=== PATIENT | female | born 2000 | race African-American/Black ===

== ENCOUNTER 2019-12-21 17:38 | Emergency (ER) | payer OTHER ==
--- NOTE | 2019-12-21 17:53 | PDOC ---
Rapid Medical Evaluation Chief Complaint: Pain, Acute Time Seen by Provider: 12/21/19 17:50 Medical Evaluation: 12/21/19 17:50 19 year old female no pmhx (2 medical abortions) last one 2 weeks ago missed follow up to assess for retained products, complaining of lower abdominal pain. No nausea vomiting fever chills or vaginal bleeding Pe: Mildly ttp over suprapubic region Plan TVUS Beta CBC and T&S Pt to precede to ED for further evaluation and treatment at the discretion of the provider in the ED Discharge Disposition - Discharge Dispostion Condition at time of disposition: Stable - Referrals - Patient Instructions - Post Discharge Activity
[2019-12-21 17:58] VITALS: BMI 20.7
[2019-12-21 18:14] LABS: EOS % 0.4 % (0-4.5); HEMATOCRIT 37.2 % (32.4-45.2); HEMOGLOBIN 12.2 GM/dL (10.7-15.3); LYMPH % 21.8 % (8-40); MCH 25.5 pg (25.7-33.7); MCHC 32.8 g/dl (32.0-36.0); MEAN PLT VOLUME 9.5 fl (7.5-11.1); MONO % 8.5 % (3.8-10.2); NEUT % 68.3 % (42.8-82.8); PLATELET COUNT 267 K/MM3 (134-434); RBC 4.78 M/mm3 (3.60-5.2); RDW 16.1 % (11.6-15.6); WHITE BLOOD COUNT 8.6 K/mm3 (4.0-10.0)
[2019-12-21 18:41] LABS: PLATELET ESTIMATE ADEQUATE
--- NOTE | 2019-12-21 18:57 | PDOC ---
History of Present Illness - General Chief Complaint: Pain, Acute Stated Complaint: STOMACH PAIN Time Seen by Provider: 12/21/19 17:50 - History of Present Illness Initial Comments: 12/21/19 18:54 19 y/o elective abortions x2 presents for evaluation of abdominal pain after examination by [facility] today. Took " pill" 11/25 on or about. Past History - Medical History Allergies/Adverse Reactions: Allergies Allergy/AdvReac Type Severity Reaction Status Date / Time No Known Allergies Allergy Verified 12/21/19 17:53 Home Medications: Ambulatory Orders Pnv No.95/Ferrous Fum/Folic AC [ Formula] 1 each PO DAILY #30 tablet 12/21/19 - Psycho-Social/Smoking History Smoking History: Never smoked Have you smoked in the past 12 months: No Information on smoking cessation initiated: No - Substance Abuse Hx (Audit-C & DAST Scrn) How often the patient has a drink containing alcohol: Never Score: In Men: 4 or > Positive; In Women: 3 or > Positive: 0 Screen Result (Pos requires Nsg. Audit-10AR): Negative In the last yr the pt used illegal drug/Rx for NonMed reason: Yes Score: Yes response is considered Positive: 1 Screen Result (Positive result requires Nsg. DAST-10): Positive Review of Systems - Review of Systems Constitutional: No: Fever ABD/GI: Yes: Nausea, Vomiting : No: Discharge *Physical Exam - Vital Signs Last Vital Signs Temp Pulse Resp BP Pulse Ox 98.6 F 90 18 126/82 99 12/21/19 17:50 12/21/19 17:50 12/21/19 17:50 12/21/19 17:50 12/21/19 17:50 - Physical Exam General Appearance: Yes: Appropriately Dressed HEENT: positive: Symmetrical Neck: positive: Supple Respiratory/Chest: positive: Normal Breath Sounds. negative: Respiratory Distress Gastrointestinal/Abdominal: positive: Flat, Other (Totally benign abdominal examination). negative: Tender, Distended, Guarding, Rebound, Tenderness ED Treatment Course - LABORATORY CBC & Chemistry Diagram: 12/21/19 18:01 - ADDITIONAL ORDERS Additional order review: Laboratory Results 12/21/19 18:01 Beta HCG, Quant 71073.9 12/21/19 18:01 RBC 4.78 MCV 78.0 L MCHC 32.8 RDW 16.1 H MPV 9.5 Neutrophils % 68.3 Lymphocytes % 21.8 Monocytes % 8.5 Eosinophils % 0.4 Basophils % 1.0 Medical Decision Making - Medical Decision Making 12/21/19 19:30 Ultrasound reviewed. vitamins called in [employer] follow-up advised I have reviewed the pathophysiology with the patient. They are in agreement with the treatment plan all questions were answered to their satisfaction. Understanding for follow-up without fail was also conveyed to the patient. Again they are in agreement. 12/21/19 19:31 This is not a threatened . Patient's been having symptoms of for the last 14 weeks. She states she took a abortive pill apparently did not work. She will follow-up with her [facility]. Discharge - Discharge Information Problems reviewed: Yes Clinical Impression/Diagnosis: Condition: Stable Disposition: HOME - Admission No - Additional Discharge Information Prescriptions: Pnv No.95/Ferrous Fum/Folic AC [ Formula] 1 each PO DAILY #30 tablet - Follow up/Referral Referrals: Sarbjit Scott MD [Primary Care Provider] - Kirill Sullivan MD [Staff Physician] - - Patient Discharge Instructions Additional Instructions: Return to the emergency room for worsening symptoms and without fail follow-up with [employer]PER[employer] in 1 to 2 days for further evaluation and treatment options. - Post Discharge Activity
[2019-12-21 20:14] VITALS: BP 127/73; PULSE 64; TEMP 98.4
== END 2019-12-21 20:14 | disposition home or self-care (01) ==
LOC: JER 17:38
DX: R10.9 Unspecified abdominal pain (principal); Z33.3 Pregnant state, gestational carrier
CPT/HCPCS: 36415; 76830-TC; 84702; 85025; 99284-25

== ENCOUNTER 2020-05-27 10:25 | Inpatient (IN) | payer OTHER ==
[2020-05-27] MEDS: ELECTROLYTE-148 SOLN 1,000 ML IV SCH (12:40)
[2020-05-27] MEDS ORDERED: AMPICILLIN - 2 GM in SODIUM CHLORIDE 100 ML IVPB ONE ×2 (12:45→13:36)
[2020-05-27] MEDS ORDERED: AMPICILLIN SODIUM 2 GM VIAL ONE (12:56)
[2020-05-27 13:13] LABS: BASO % 0.5 % (0-2.0); EOS % 0.4 % (0-4.5); HEMATOCRIT 37.7 % (32.4-45.2); HEMOGLOBIN 12.3 GM/dL (10.7-15.3); LYMPH % 21.3 % (8-40); MCH 27.1 pg (25.7-33.7); MCHC 32.5 g/dl (32.0-36.0); MEAN CELL VOLUME 83.3 fl (80-96); MEAN PLT VOLUME 11.3 fl (7.5-11.1); MONO % 11.2 % (3.8-10.2); NEUT % 66.6 % (42.8-82.8); PLATELET COUNT 149 K/MM3 (134-434); RBC 4.53 M/mm3 (3.60-5.2); RDW 13.6 % (11.6-15.6); WHITE BLOOD COUNT 8.4 K/mm3 (4.0-10.0)
[2020-05-27 13:19] LABS: INR 0.86 (0.83-1.09); PROTHROMBIN TIME (PATIENT) 10.5 SEC (9.7-13.0)
[2020-05-27 13:22] LABS: ACTIVATED PTT 26.7 SECONDS (25.2-36.5)
[2020-05-27 13:33] LABS: CALCIUM 9.2 mg/dL (8.5-10.1)
[2020-05-27 13:34] LABS: ALBUMIN 2.9 g/dl (3.4-5.0); BLOOD UREA NITROGEN 6.4 mg/dL (7-18)
[2020-05-27 13:37] LABS: CREATININE 0.7 mg/dL (0.55-1.3)
[2020-05-27 13:39] LABS: BILIRUBIN,TOTAL 0.3 mg/dL (0.2-1); TOT PROT 6.2 g/dl (6.4-8.2)
[2020-05-27] MEDS ORDERED: BETAMET ACET/BETAMET NA PH 30 MG/5 ML VIAL IM ONE (13:45)
[2020-05-27] MEDS ORDERED: BETAMET ACET/BETAMET NA PH 30 MG/5 ML VIAL ONE (13:48)
[2020-05-27 13:59] LABS: SYPHILIS W/ RPR CONF NON-REACTIVE (NONREACTIVE)
[2020-05-27] MEDS ORDERED: AMPICILLIN - 1 GM in SODIUM CHLORIDE 100 ML IVPB SCH (14:00)
[2020-05-27 14:07] LABS: URIC ACID 5.3 mg/dL (2.6-7.2)
[2020-05-27] MEDS: OXYTOCIN 30 UNITS in 0.9% NS 30 UNIT/500 ML INFUS.BAG IVPB SCH (14:20)
[2020-05-27 14:28] LABS: HIV INTERPRETATION NEGATIVE (NEGATIVE)
[2020-05-27] MEDS ORDERED: OXYTOCIN 30 UNITS in 0.9% NS 30 UNIT/500 ML INFUS.BAG IVPB ONE (14:37)
[2020-05-27 14:46] VITALS: BMI 26.6
[2020-05-27 14:48] LABS: EPI CELLS 19 /uL (0-25.1); HYALINE CASTS 1 /uL (0-3.1); PH,URINE 7.5 (5.0-8.0); URINE APPEARANCE CLEAR; URINE BACTERIA 185 /uL (0-1359); URINE BILIRUBIN NEGATIVE (NEGATIVE); URINE COLOR YELLOW; URINE GLUCOSE (UA) NEGATIVE (NEGATIVE); URINE KETONE NEGATIVE (NEGATIVE); URINE LEUK ESTERASE NEGATIVE (NEGATIVE); URINE NITRITE NEGATIVE (NEGATIVE); URINE PROTEIN NEGATIVE (NEGATIVE); URINE RBC 3 /uL (0-23.9); URINE UROBILINOGEN 0.2 mg/dL (0.2-1.0); URINE WBC 14 /uL (0-25.8)
[2020-05-27 14:51] LABS: COCAINE, UR NEGATIVE ng/ml (CUTOFF=300); URINE BARBITURATES NEGATIVE ng/ml (CUTOFF=200); URINE BENZODIAZEPINES NEGATIVE ng/ml (CUTOFF=200)
[2020-05-27 14:52] LABS: METHADONE, UR NEGATIVE ng/ml (CUTOFF=300); OPIATES, URI NEGATIVE ng/ml (CUTOFF=300); PHENCYCLIDINE,URINE NEGATIVE ng/ml (CUTOFF=25); URINE AMPHETAMINES NEGATIVE ng/ml (CUTOFF=500)
[2020-05-27] MEDS ORDERED: AMPICILLIN SODIUM 1 GM VIAL ONE ×2 (16:16→20:50)
[2020-05-27] MEDS: AMPICILLIN - 1 GM in SODIUM CHLORIDE 100 ML IVPB SCH ×2 (16:40→20:50)
[2020-05-27] MEDS ORDERED: PCA PUMP NR ONE ×2 (17:15→21:30)
[2020-05-27] MEDS: FENTANYL/BUPIVACAINE/NS/PF - PCEA - 50 ML DISP.SYRIN EP SCH (17:40)
[2020-05-27] MEDS ORDERED: NALOXONE HCL 0.4 MG/ML VIAL IVPUSH PRN (18:21)
[2020-05-27] MEDS ORDERED: FENTANYL/BUPIVACAINE/NS/PF - PCEA - 50 ML DISP.SYRIN EP SCH (18:30)
[2020-05-27] MEDS ORDERED: MAGNESIUM SULFATE 20GM/500ML - 20 GM/500 ML INFUS.BAG ONE (19:13)
[2020-05-27] MEDS ORDERED: MAGNESIUM 4GM/H20 - 4 GM/100 ML IVPB IVPB ONE (19:13)
[2020-05-27] MEDS: MAGNESIUM 4GM/H20 - 4 GM/100 ML IVPB IVPB SCH (19:30)
[2020-05-27] MEDS: MAGNESIUM SULFATE 20GM/500ML - 20 GM/500 ML INFUS.BAG IVPB SCH (20:00)
[2020-05-27] MEDS ORDERED: FENTANYL/BUPIVACAINE/NS/PF - PCEA - 50 ML DISP.SYRIN EP ONE (21:31)
[2020-05-27] MEDS ORDERED: OXYTOCIN 20 UNITS in 0.9% NS 20 UNIT/1,000 ML INFUS.BAG IV ONE (23:02)
[2020-05-27] MEDS ORDERED: LIDOCAINE HCL 1% PRESERVATIVE FREE - 30ML VIAL ONE (23:02)
[2020-05-27] MEDS: OXYTOCIN 20 UNITS in 0.9% NS 20 UNIT/1,000 ML INFUS.BAG IV SCH (23:53)
[2020-05-28] MEDS ORDERED: WITCH HAZEL 50% (TUCKS) 40 PAD/JAR PAD TP PRN (00:29)
[2020-05-28] MEDS ORDERED: BENZOCAINE 28 GM HEMORRHOIDAL OINTMENT TP PRN (00:29)
[2020-05-28] MEDS ORDERED: BENZOCAINE 20% 57 GM BOTTLE TP PRN (00:29)
[2020-05-28 00:56] LABS: CORD BASE EXCESS -3.7 mmol/L (0-2); CORD HCO3 22.7 mmHg (20-29); CORD PCO2 45.4 mmHg (30-78); CORD pH 7.316 (7.14-7.44)
[2020-05-28 00:58] LABS: CORD BASE EXCESS -4.9 mmol/L (0-2); CORD HCO3 21.9 mmHg (20-29); CORD PCO2 47.1 mmHg (30-78); CORD pH 7.286 (7.14-7.44)
[2020-05-28] MEDS: OXYTOCIN 20 UNITS in 0.9% NS 20 UNIT/1,000 ML INFUS.BAG IV SCH (02:15)
[2020-05-28] MEDS ORDERED: OXYTOCIN 20 UNITS in 0.9% NS 20 UNIT/1,000 ML INFUS.BAG IV ONE ×2 (02:15→13:32)
[2020-05-28] MEDS ORDERED: ACETAMINOPHEN 325 MG TABLET (FP) ONE ×2 (04:04→12:22)
[2020-05-28] MEDS ORDERED: IBUPROFEN 600 MG TABLET (FP) PO ONE ×2 (04:04→12:22)
[2020-05-28] MEDS: IBUPROFEN 600 MG TABLET (FP) PO PRN ×2 (04:05→12:15)
[2020-05-28] MEDS: ACETAMINOPHEN 325 MG TABLET (FP) PO PRN ×2 (04:05→12:15)
[2020-05-28] MEDS ORDERED: MAGNESIUM SULFATE 20GM/500ML - 20 GM/500 ML INFUS.BAG ONE (07:02)
[2020-05-28] MEDS: MAGNESIUM SULFATE 20GM/500ML - 20 GM/500 ML INFUS.BAG IVPB SCH (09:30)
[2020-05-28] MEDS: DOCUSATE SODIUM 100 MG CAPSULE (FP) PO SCH (11:03)
[2020-05-28] MEDS: PRENATAL VITAMINS W/ FOLIC ACID TABLET (FP) PO SCH (11:03)
[2020-05-28] MEDS: MAGNESIUM 4GM/H20 - 4 GM/100 ML IVPB IVPB SCH (21:35)
[2020-05-29] MEDS: LABETALOL HCL 100 MG TABLET (FP) PO SCH ×3 (01:05→21:15)
[2020-05-29] MEDS: MAGNESIUM SULFATE 20GM/500ML - 20 GM/500 ML INFUS.BAG IVPB SCH (08:00)
[2020-05-29] MEDS: OXYTOCIN 20 UNITS in 0.9% NS 20 UNIT/1,000 ML INFUS.BAG IV SCH (08:00)
[2020-05-29] MEDS: OXYTOCIN 30 UNITS in 0.9% NS 30 UNIT/500 ML INFUS.BAG IVPB SCH (08:01)
[2020-05-29] MEDS: FENTANYL/BUPIVACAINE/NS/PF - PCEA - 50 ML DISP.SYRIN EP SCH (08:01)
[2020-05-29] MEDS: ELECTROLYTE-148 SOLN 1,000 ML IV SCH (08:01)
[2020-05-29] MEDS: DOCUSATE SODIUM 100 MG CAPSULE (FP) PO SCH (09:10)
[2020-05-29] MEDS: PRENATAL VITAMINS W/ FOLIC ACID TABLET (FP) PO SCH (09:11)
[2020-05-29] MEDS: IBUPROFEN 600 MG TABLET (FP) PO PRN ×2 (09:11→19:27)
[2020-05-29] MEDS: ACETAMINOPHEN 325 MG TABLET (FP) PO PRN ×2 (09:12→19:26)
[2020-05-29 09:17] LABS: BASO % 0.3 % (0-2.0); EOS % 0.4 % (0-4.5); HEMATOCRIT 30.6 % (32.4-45.2); HEMOGLOBIN 10.1 GM/dL (10.7-15.3); LYMPH % 15.9 % (8-40); MCH 27.1 pg (25.7-33.7); MCHC 32.9 g/dl (32.0-36.0); MEAN CELL VOLUME 82.3 fl (80-96); MEAN PLT VOLUME 10.8 fl (7.5-11.1); NEUT % 74.4 % (42.8-82.8); PLATELET COUNT 157 K/MM3 (134-434); RBC 3.72 M/mm3 (3.60-5.2); RDW 13.8 % (11.6-15.6); WHITE BLOOD COUNT 12.2 K/mm3 (4.0-10.0)
[2020-05-29] MEDS ORDERED: FLU VACCINE (FLULAVAL) PF 60 MCG/0.5 ML SYRINGE 2020-2021 IM ONE (10:00)
[2020-05-29] MEDS ORDERED: SENNOSIDES/DOCUSATE COMBO (SENNA PLUS) TABLET (UD) PO PRN (22:00)
[2020-05-30] MEDS: ACETAMINOPHEN 325 MG TABLET (FP) PO PRN (06:10)
[2020-05-30] MEDS: IBUPROFEN 600 MG TABLET (FP) PO PRN (06:11)
[2020-05-30] MEDS: FENTANYL/BUPIVACAINE/NS/PF - PCEA - 50 ML DISP.SYRIN EP SCH (07:20)
[2020-05-30] MEDS: PRENATAL VITAMINS W/ FOLIC ACID TABLET (FP) PO SCH (09:43)
[2020-05-30] MEDS: LABETALOL HCL 100 MG TABLET (FP) PO SCH (09:43)
[2020-05-30] MEDS: DOCUSATE SODIUM 100 MG CAPSULE (FP) PO SCH (09:43)
[2020-05-30 12:21] VITALS: BP 148/80; PULSE 73; TEMP 98.7
== END 2020-05-30 12:28 | disposition home or self-care (01) | DRG 542 ==
LOC: JDEL 10:25 → JLDR 12:28 → J3W 05-28 22:45
PROVIDERS: ADMIT Obstetrics & Gynecology; ATTEND Obstetrics & Gynecology
PROC: 0DQR0ZZ Repair Anal Sphincter, Open Approach (ICD-10-PCS; principal; 2020-05-27)
PROC: 10E0XZZ Delivery of Products of Conception, External Approach (ICD-10-PCS; 2020-05-27)
DX: O41.03X0 Oligohydramnios, third trimester, not applicable or unspecified (principal); O60.23X0 Term delivery with preterm labor, third trimester, not applicable or unspecified; O71.82 Other specified trauma to perineum and vulva; Z3A.36 36 weeks gestation of pregnancy; Z37.0 Single live birth
CPT/HCPCS: 36415; 36600; 59409; 76819-TC; 80053; 80307; 81003; 82803; 82977; 83010; 83735; 84450; 84460; 84550; 85025; 85045; 85610; 85730; 86762; 86780; 86850; 86900; 86901; 87340; 87389; 88307-TC; 96372; C9803; U0003

== ENCOUNTER 2020-07-01 12:55 | Emergency (ER) | payer OTHER ==
[2020-07-01 13:11] VITALS: BP 118/78; PULSE 74; TEMP 97; BMI 23.3
[2020-07-01 14:30] LABS: POTASSIUM 4.1 mmol/L (3.5-5.1)
[2020-07-01 14:33] LABS: CALCIUM 9.3 mg/dL (8.5-10.1)
[2020-07-01 14:34] LABS: ALBUMIN 4.1 g/dl (3.4-5.0); BASO % 0.9 % (0-2.0); BLOOD UREA NITROGEN 13.4 mg/dL (7-18); EOS % 1.7 % (0-4.5); HEMATOCRIT 43.5 % (32.4-45.2); LYMPH % 37.2 % (8-40); MCH 26.5 pg (25.7-33.7); MCHC 32.1 g/dl (32.0-36.0); MEAN CELL VOLUME 82.5 fl (80-96); MEAN PLT VOLUME 10.4 fl (7.5-11.1); NEUT % 51.2 % (42.8-82.8); PLATELET COUNT 227 K/MM3 (134-434); RBC 5.27 M/mm3 (3.60-5.2); RDW 13.2 % (11.6-15.6); WHITE BLOOD COUNT 4.7 K/mm3 (4.0-10.0)
[2020-07-01 14:37] LABS: CREATININE 1.2 mg/dL (0.55-1.3)
[2020-07-01 14:38] LABS: BILIRUBIN,TOTAL 0.6 mg/dL (0.2-1)
[2020-07-01 14:39] LABS: TOT PROT 7.4 g/dl (6.4-8.2)
[2020-07-01 14:41] LABS: INR 0.99 (0.83-1.09); PROTHROMBIN TIME (PATIENT) 12.2 SEC (9.7-13.0)
[2020-07-01 15:22] LABS: EPI CELLS >36 /uL (0-25.1); HYALINE CASTS 36 /uL (0-3.1); PH,URINE 5.5 (5.0-8.0); URINE APPEARANCE CLOUDY; URINE BACTERIA 1204 /uL (0-1359); URINE BILIRUBIN NEGATIVE (NEGATIVE); URINE COLOR YELLOW; URINE GLUCOSE (UA) NEGATIVE (NEGATIVE); URINE KETONE 1+ (NEGATIVE); URINE LEUK ESTERASE 2+ (NEGATIVE); URINE NITRITE NEGATIVE (NEGATIVE); URINE PROTEIN 1+ (NEGATIVE); URINE RBC 154 /uL (0-23.9); URINE WBC 611 /uL (0-25.8)
== END 2020-07-01 15:43 | disposition home or self-care (01) ==
LOC: JERFT 12:55
DX: O86.01 Infection of obstetric surgical wound, superficial incisional site (principal)
CPT/HCPCS: 36415; 80053; 81003; 85025; 85610; 86850; 86900; 86901; 87086; 99284-25